=== PATIENT | female | born 1985 | race Caucasian/White ===

== ENCOUNTER 2021-08-21 07:54 | Inpatient (IN) | payer OTHER ==
[2021-08-21] MEDS ORDERED: Lactated Ringers 1,000 ML IV ONE (07:56)
[2021-08-21] MEDS ORDERED: Lidocaine 1% 30 ML SDV INJECT PRN (07:56)
[2021-08-21] MEDS ORDERED: Ondansetron 4 MG/2 ML SDV IVPUSH PRN ×2 (07:56)
[2021-08-21] MEDS ORDERED: Tranexamic Acid 1,000 MG in Sodium Chloride 0.9% 100 ML IV PRN (07:56)
[2021-08-21] MEDS ORDERED: ePHEDrine 50 MG/ML SDV IVPUSH PRN (07:56)
[2021-08-21] MEDS ORDERED: Naloxone 2 MG/2 ML Syringe IVPUSH PRN (07:56)
[2021-08-21] MEDS ORDERED: Methylergonovine 0.2 MG/1 ML Amp IM PRN (07:56)
[2021-08-21] MEDS ORDERED: Sodium Chloride 0.9% 10 ML Syringe FLUSH PRN (07:56)
[2021-08-21] MEDS ORDERED: Carboprost Tromethamine 250 MCG/1 ML Amp IM PRN (07:56)
[2021-08-21] MEDS ORDERED: Promethazine 25 MG/ML SDV IM PRN (07:56)
[2021-08-21] MEDS ORDERED: Acetaminophen 325 MG Tab PO PRN ×2 (07:56)
[2021-08-21] MEDS ORDERED: Famotidine 20 MG/2 ML SDV IVPUSH PRN (07:56)
[2021-08-21] MEDS ORDERED: Misoprostol 400 MCG (4 X 100 MCG TAB) RECTAL PRN (07:56)
[2021-08-21] MEDS ORDERED: Oxytocin/Normal Saline 30 UNIT/500 ML BAG IV SCH (08:00)
[2021-08-21] MEDS ORDERED: Lactated Ringers 500 ML IV SCH (08:00)
[2021-08-21] MEDS: Lactated Ringers 1,000 ML IV SCH ×2 (08:52→15:41)
[2021-08-21] MEDS ORDERED: Penicillin G Potassium 5 MILLUNITS in Sodium Chloride 0.9% 100 ML IV ONE (09:00)
[2021-08-21] MEDS ORDERED: Misoprostol 50 MCG (1/2 of 100 MCG) Tab VAG ONE (09:57)
[2021-08-21] MEDS: Penicillin G Potassium 3 MILLUNITS in Sodium Chloride 0.9% 100 ML IV SCH ×2 (12:36→16:48)
[2021-08-21] MEDS ORDERED: Ibuprofen 800 MG Tab PO PRN (17:35)
[2021-08-21] MEDS ORDERED: Benzocaine/Menthol 20%-0.5% Spray 78 GM Cannister TOP PRN (17:35)
[2021-08-21] MEDS ORDERED: Docusate Sodium 100 MG Cap PO PRN (17:35)
[2021-08-21] MEDS ORDERED: Simethicone 80 MG Tab.Chew PO PRN (17:35)
[2021-08-22] MEDS ORDERED: Ferrous Sulfate 325 MG Tab PO SCH (08:00)
[2021-08-22] MEDS ORDERED: Prenatal Multivitamin with Calcium/Folic Acid/Iron Tab PO SCH (09:00)
[2021-08-22 10:32] VITALS: BP 125/62; PULSE 67
== END 2021-08-22 20:00 | disposition home or self-care (01) | DRG 807 ==
LOC: DL.OB 07:54
PROVIDERS: ADMIT Family Medicine; ATTEND Family Medicine
PROC: 10E0XZZ Delivery of Products of Conception, External Approach (ICD-10-PCS; principal; 2021-08-21)
PROC: 3E0P7VZ Introduction of Hormone into Female Reproductive, Via Natural or Artificial Opening (ICD-10-PCS; 2021-08-21)
PROC: 10907ZC Drainage of Amniotic Fluid, Therapeutic from Products of Conception, Via Natural or Artificial Opening (ICD-10-PCS; 2021-08-21)
DX: O99.824 Streptococcus B carrier state complicating childbirth (principal); Z37.0 Single live birth; Z3A.38 38 weeks gestation of pregnancy; Z20.822 Contact with and (suspected) exposure to COVID-19
CPT/HCPCS: 36415; 59409; 59414; 85027; 85461; 86850; 86900; 86901; A9270-GY; J2540; J2590; J2790; J7120; U0002